=== PATIENT | female | born 1995 | race Hispanic/Latino ===

== ENCOUNTER 2024-07-08 22:09 | Emergency (ER) | payer SELFPAY ==
[2024-07-09 00:36] LABS: Urine Albumin Trace (Neg - Trace); Urine Bilirubin Negative (Negative); Urine Character Slightly Cloudy (Clear); Urine Color Yellow; Urine Glucose Negative (Negative); Urine Ketone Negative (Negative); Urine Leukocyte 2+ (Negative); Urine Nitrite Negative (Negative); Urine Occult Blood Trace (Negative); Urine Specific Gravity 1.025 (<1.030); Urine Urobilinogen Negative (Neg - 1+)
--- NOTE | 2024-07-09 00:50 | ED.GENMED ---
History of Present Illness
General
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
Source: patient
Exam Limitations: none
Time Seen by Provider: 07/09/24 00:11
History of Present Illness
History of Present Illness:
29-year-old female Cypriot-speaking only presents complaining of 3 to 4 days worth of worsening vaginal discomfort and discharge. She notes constant pain and burning when she urinates. She denies fevers. No nausea or vomiting. No significant
abdominal pain. She is sexually active. She is accompanied by her significant other. Please note entire history and physical was performed with [place]riot-speaking physician advisor in room as well as female nurse hvac designer in the room
Phy Exam
Physical Exam
Physical Exam:
General: Well-appearing female no acute respiratory distress
HEENT: Normocephalic atraumatic
Heart: Regular rate and rhythm no murmurs
Lungs: Clear no wheeze
exam: There is erythema noted of the vaginal mac. The cervix is inflamed. There is significant amount of discharge coming from the cervix. It is yellow/white in nature.
Course
Orders/Labs/Results
Orders:
Orders
07/08/24 23:12
Urinalysis Urgent
Date Specimen was Collected: 07/08/24
Time Specimen was Collected: 23:12
07/09/24 00:24
HCG, Urine Qualitative Screen Urgent
Date Specimen was Collected: 07/08/24
Time Specimen was Collected: 23:12
Comment: ADD ON
Urine Microscopic Urgent
Date Specimen was Collected: 07/08/24
Time Specimen was Collected: 23:12
07/09/24 00:47
Add On- LAB Urgent
Tests Added?: urine gonorrhea/chlamydia
07/09/24 01:18
Add On- LAB Urgent
Tests Added?: urine hcg
07/09/24 01:57
CefTRIAXone [Rocephin] 500 mg IM NOW STA
Doxycycline [Vibramycin] 100 mg PO NOW STA
Abnormal Lab Results
07/09/24
00:24
Urine Occult Blood Trace A
(Negative)
Ur Leukocyte Esterase 2+ A
(Negative)
Urine WBC >100 A /HPF
(0-5)
Urine Bacteria Many A
(Negative)
Vital Signs
Initial and Last Documented VS:
Initial Vital Signs
Temp Pulse Resp Pulse Ox
98.3 F 70 20 99
07/08/24 22:11 07/08/24 22:11 07/08/24 22:11 07/08/24 22:11
Last Documented Vital Signs
Temp Pulse Resp Pulse Ox
98.3 F 70 20 99
07/08/24 22:11 07/08/24 22:11 07/08/24 22:11 07/08/24 22:11
MDM/Problems Addressed
Differential Diagnosis Includes:
Pelvic pain. Consider pelvic and inflammatory disease versus UTI versus fungal infection.
Cervix quite tender on exam. Question possible cervicitis. Urinalysis pending. Will test for gonorrhea and chlamydia to will have a low threshold to treat empirically given findings on exam
*Critical Care Note
Total Time (30-74mins, 75-104mins- exclusive of procedures): Not Applicable
Update Note
Update Note:
Concern for possible PID. Rocephin 500 IM and doxycycline initiated. Gonorrhea and Chlamydia tests are pending. Stable for discharge
ED Attending Note
-
Portions of this chart may have been created with voice recognition software.� Occasional wrong word or��sound alike� substitutions may have occurred due to the inherent limitations of voice recognition software.
Discharge Plan
Departure
Patient Disposition: Home (Routine Discharge)
Date of Disposition: 07/09/24
Time of Disposition: 02:21
Patient with high blood pressure during this ER visit?: No
Discharge Problem:
Pelvic pain
Instructions: Pelvic Inflammatory Disease (DC)
Prescriptions:
New
doxycycline hyclate 100 mg tablet
100 mg PO BID Qty: 14 0RF
Referrals:
NONE,* [Family Provider] -
Activity Restrictions/Additional Instructions:
Take antibiotics as directed. You may receive a call about your test results. Return if needed otherwise.
Interventions
Interventions:
*Risk Screen - Suicide Last Done: 07/09/24 01:30
*General Assessment Last Done: 07/08/24 22:11
*Neglect/Abuse Screening Last Done: 07/09/24 01:30
ED- Fall Risk Assessment Last Done: 07/09/24 01:30
*ED COVID-19 Vaccine History Last Done: 07/09/24 01:30
ED-Female Genitourinary Assessment Last Done: 07/09/24 01:30
Discharge Date and Time
Print Language: SWEDISH
[2024-07-09 01:11] LABS: Urine Mucus Many; Urine Squamous Cell >30 /LPF (Few)
[2024-07-09 01:12] LABS: Urine Amorphous Seen; Urine Bacteria Many (Negative); Urine White Cell >100 /HPF (0-5)
[2024-07-09 01:13] LABS: Urine Calcium Oxalate Crystals Seen
[2024-07-09] MEDS: ROCEPHIN 500 MG IM (02:09)
[2024-07-09] MEDS: VIBRAMYCIN 100 MG PO (02:09)
[2024-07-09 02:18] LABS: HCG, Urine Qualitative Screen Negative
== END 2024-07-09 03:20 | disposition home or self-care (01) ==
LOC: EMR 22:09
PROVIDERS: Student in an Organized Health Care Education/Training Program; EMERGENCY PHYSICIAN Student in an Organized Health Care Education/Training Program
DX: N72 Inflammatory disease of cervix uteri (principal); R10.2 Pelvic and perineal pain
CPT/HCPCS: 96372; 99284; 81003; 81015; 81025; 87491; 87591

== ENCOUNTER 2025-05-10 14:56 | Outpatient (RCR) | payer OTHER, SELFPAY | END 2025-05-10 23:59 | disposition home or self-care (01) | LOC: ROT 14:56 | PROVIDERS: ATTENDING PHYSICIAN Nurse Practitioner Adult Health | DX: G56.01 Carpal tunnel syndrome, right upper limb (principal); Z73.6 Limitation of activities due to disability | CPT/HCPCS: 97166; 97535 ==

== ENCOUNTER → 2025-06-20 13:10 | Outpatient (REF) | payer OTHER, SELFPAY | LOC: EMG 13:10 | PROVIDERS: ATTENDING PHYSICIAN Nurse Practitioner Adult Health | DX: R20.0 Anesthesia of skin (principal); R20.2 Paresthesia of skin; G56.03 Carpal tunnel syndrome, bilateral upper limbs | CPT/HCPCS: 95886; 95911 ==